=== PATIENT | female | born 2000 | race Two or more races ===

== ENCOUNTER 2022-10-20 09:27 | Emergency (ER) | payer MEDICAID, OTHER ==
[~2022-10-20] VITALS: Ht 170.2 cm; Wt 89.6 kg
[2022-10-20 10:10] VITALS: BP 115/82; PULSE 86; RESP 16; TEMP 97.6; O2SAT 96
[2022-10-20] MEDS ORDERED: PENICILLIN G BENZ 600000 UNIT/ML 1ML SYRG IM ONE (10:15)
== END 2022-10-20 10:59 | disposition home or self-care (01) ==
LOC: ER 09:27
DX: O98.119 Syphilis complicating pregnancy, unspecified trimester (principal)
CPT/HCPCS: 96372; 99283; J0561

== ENCOUNTER 2022-10-27 12:24 | Emergency (ER) | payer MEDICAID ==
[~2022-10-27] VITALS: Ht 170.2 cm; Wt 91.2 kg
[2022-10-27 13:11] VITALS: BP 128/59; PULSE 108; RESP 18; TEMP 98.3; O2SAT 96
[2022-10-27] MEDS ORDERED: PENICILLIN G BENZ 600000 UNIT/ML 1ML SYRG IM ONE ×2 (13:30→14:00)
[2022-10-27] MEDS ORDERED: PENICILLIN G BENZ 1200000 UNITS/2 ML SYRG IM ONE (14:00)
[2022-10-30] MEDS ORDERED: PREN-96 PO (21:33)
== END 2022-10-27 14:09 | disposition home or self-care (01) ==
LOC: ER 12:24
DX: O98.113 Syphilis complicating pregnancy, third trimester (principal); Z3A.39 39 weeks gestation of pregnancy
CPT/HCPCS: 96372; 99283; J0561

== ENCOUNTER 2022-10-30 20:05 | Observation (INO) | payer MEDICAID ==
[2022-10-30] MEDS ORDERED: PREN-96 PO ×2 (21:33)
== END 2022-10-30 21:24 | disposition home or self-care (01) ==
LOC: LDRP 20:05
PROVIDERS: ADMIT Obstetrics & Gynecology; ATTEND Obstetrics & Gynecology
DX: O62.9 Abnormality of forces of labor, unspecified (principal); O26.853 Spotting complicating pregnancy, third trimester; Z3A.39 39 weeks gestation of pregnancy
CPT/HCPCS: 59025; 81002; 94760; G0378

== ENCOUNTER 2022-11-03 12:12 | Observation (INO) | payer MEDICAID ==
[~2022-11-03 12:12] MED LIST: PREN-96 PO
[2022-11-05 10:06] LABS: Chlamydia Trachomatis, NAA Negative (Negative); Neisseria gonorrhoeae, NAA Negative (Negative)
== END 2022-11-03 14:53 | disposition home or self-care (01) ==
LOC: LDRP 12:12 → UNDOADMOB 12:12 → LDRP 13:09
PROVIDERS: ADMIT Obstetrics & Gynecology; ATTEND Obstetrics & Gynecology
DX: O62.9 Abnormality of forces of labor, unspecified (principal); Z3A.40 40 weeks gestation of pregnancy
CPT/HCPCS: 59025; 76818; 81002; 87491; 87591; 94760; G0378

== ENCOUNTER 2022-11-04 09:20 | Inpatient (IN) | payer MEDICAID, OTHER ==
[~2022-11-04] VITALS: Ht 170.2 cm; Wt 93.9 kg
[2022-11-04] MEDS ORDERED: PROMETHAZINE HCL 25 MG/ML 1ML IV PRN (10:00)
[2022-11-04] MEDS ORDERED: LACTATED RINGER'S 1,000 ML IV SCH (10:00)
[2022-11-04] MEDS ORDERED: PHISODERM TOP SOLN 240ML BTL TOP PRN (10:00)
[2022-11-04] MEDS ORDERED: DERMOPLAST 60ML BOTTLE TOP PRN (10:00)
[2022-11-04] MEDS ORDERED: LACT. RINGERS/OXYTOCIN 20UNITS 500 ML IV ONE ×4 (10:00→15:15)
[2022-11-04] MEDS ORDERED: LIDOCAINE 2%HCL (LOCAL ANESTH.) INJ 20ML MDV IJ PRN (10:00)
[2022-11-04 10:26] LABS: Basophils # (auto) 0 10 ^3/uL (0-0.2); Basophils % (auto) 0.3 % (0.0-2.0); Eosinophils # (auto) 0 10 ^3/uL (0-0.8); Eosinophils % (auto) 0.1 % (0.0-7.0); Hematocrit 37.1 % (36.0-46.0); Hemoglobin 12.3 g/dL (12.2-16.2); Lymphocytes # (auto) 0.9 10 ^3/uL (0.4-5.4); Lymphocytes % (auto) 6.9 % (10.0-50.0); Mean Corpuscular Hemoglobin 31.6 pg (28.0-32.0); Mean Corpuscular Hgb Conc. 33.1 g/dL (32.0-36.0); Mean Corpuscular Volume 95.5 fL (80.0-100.0); Monocytes # (auto) 0.9 10 ^3/uL (0-1.3); Monocytes % (auto) 6.7 % (0.0-12.0); Neutrophils # (auto) 11.3 10 ^3/uL (1.6-8.6); Red Blood Cells 3.89 10^6/uL (4.0-5.20); White Blood Cell 13.2 10^3/uL (4.4-10.8)
[2022-11-04 10:37] LABS: Alanine Aminotransferase 11 U/L (7-40); Albumin 3.7 g/dL (3.2-4.8); Alkaline Phosphatase 145 U/L (46-116); Anion Gap 8.8 (5-15); Aspartate Aminotransferase 15 U/L (13-40); BUN/Creatinine Ratio 8.6 (10.0-20.0); Bilirubin, Total 0.6 mg/dL (0.2-1.0); Blood Urea Nitrogen 5 mg/dL (9-23); Calcium 9.1 mg/dL (8.5-10.1); Carbon Dioxide 22.2 mmol/L (20-30); Chloride 105 mmol/L (98-107); Glucose 103 mg/dL (74-106); Sodium 136 mmol/L (136-145); Total Protein 6.1 g/dL (5.7-8.2)
[2022-11-04 10:43] LABS: INR 0.95 (0.9-1.15)
[2022-11-04] MEDS ORDERED: NALBUPHINE HCL 10 MG/1ml INJECTION IM ONE (11:15)
[2022-11-04] MEDS ORDERED: miSOPROStol 100 mcg TAB PR PRN (11:15)
[2022-11-04] MEDS ORDERED: METHYLERGONOVINE MALEATE 0.2 MG/ML AMP IM PRN (11:15)
[2022-11-04] MEDS ORDERED: ONDANSETRON HCL 4 MG/2 ML VIAL IV PRN (11:15)
[2022-11-04] MEDS ORDERED: miSOPROStol 100 mcg TAB SL PRN (11:15)
[2022-11-04] MEDS ORDERED: ACETAMINOPHEN 325 MG TAB PO PRN (14:45)
[2022-11-04] MEDS ORDERED: ONDANSETRON ODT 4 MG TAB PO PRN (14:45)
[2022-11-04] MEDS: IBUPROFEN 800 MG TAB PO SCH (18:33)
[2022-11-04 18:45] VITALS: BP 117/58; PULSE 103; RESP 18; TEMP 99.1; O2SAT 97
[2022-11-04] MEDS ORDERED: DOCUSATE SOD 100 MG CAP PO SCH (22:00)
[2022-11-04 23:00] VITALS: BP 107/53; PULSE 104; RESP 16; TEMP 98.5; O2SAT 95
[2022-11-05] MEDS: IBUPROFEN 800 MG TAB PO SCH ×4 (00:39→18:29)
[2022-11-05] MEDS: ceFAZolin 1GM/50ML 50 ML IV SCH ×2 (00:39→07:54)
[2022-11-05 03:00] VITALS: BP 94/60; PULSE 100; RESP 18; TEMP 98.2; O2SAT 97
[2022-11-05] MEDS ORDERED: CEPH500T PO (06:53)
[2022-11-05] MEDS ORDERED: DOCU-94 PO (06:53)
[2022-11-05 07:05] VITALS: BP 99/51; PULSE 97; RESP 16; TEMP 98.2; O2SAT 96
[2022-11-05 11:05] VITALS: BP 95/55; PULSE 91; RESP 18; TEMP 98.6; O2SAT 96
[2022-11-05] MEDS: WITCH HAZEL-GLYCERIN PAD TOP PRN ×2 (11:14→19:49)
[2022-11-05] MEDS ORDERED: DOCUSATE SOD 100 MG CAP PO ONE (12:30)
[2022-11-05 15:00] VITALS: BP 96/54; PULSE 80; RESP 16; TEMP 98.4; O2SAT 98
[2022-11-05] MEDS ORDERED: ceFAZolin 1GM/50ML 50 ML IV SCH (16:00)
[2022-11-05 19:00] VITALS: BP 117/67; PULSE 91; RESP 18; TEMP 98.6; O2SAT 97
[2022-11-05 21:40] VITALS: BP 110/62; PULSE 85; RESP 16; TEMP 98.6; O2SAT 98
[2022-11-08 05:07] LABS: RPR Non Reactive (Non Reactive)
== END 2022-11-05 21:40 | disposition home or self-care (01) | DRG 560 ==
LOC: LDRP 09:20 → EDBD 09:20 → EDUNIT# 09:20
PROVIDERS: ADMIT Obstetrics & Gynecology; ATTEND Obstetrics & Gynecology
PROC: 10E0XZZ Delivery of Products of Conception, External Approach (ICD-10-PCS; principal; 2022-11-04)
PROC: 0KQM0ZZ Repair Perineum Muscle, Open Approach (ICD-10-PCS; 2022-11-04)
DX: O48.0 Post-term pregnancy (principal); Z37.0 Single live birth; O69.81X0 Labor and delivery complicated by cord around neck, without compression, not applicable or unspecified; Z3A.40 40 weeks gestation of pregnancy; O70.1 Second degree perineal laceration during delivery
CPT/HCPCS: 36415; 59025; 59409; 80053; 81002; 85025; 85610; 85730; 86592; 86850; 86900; 86901; 94760; 96360; 96361; 96365; 96366; G0378; J0690